=== PATIENT | female | born 1955 | race American Indian/Alaskan Native ===

== ENCOUNTER 2021-07-20 06:13 | Day surgery (SDC) | payer MEDICARE ==
[2021-07-18 11:10] LABS: Hematocrit 38.9 % (30.3-42.9); Mean Corpuscular HGB Conc 34 % (30-34); Mean Corpuscular Volume 93 fl (79-97); Platelet Count 300 K/mm3 (140-440); Red Blood Count 4.19 M/mm3 (3.65-5.03)
[2021-07-18 11:25] LABS: Alanine Aminotransferase 11 units/L (7-56); Albumin 3.9 g/dL (3.9-5); Blood Urea Nitrogen 15 mg/dL (7-17); Calcium 9.9 mg/dL (8.4-10.2); Hemolysis Index 46
[2021-07-18 11:48] LABS: BUN/Creatinine Ratio 25
--- NOTE | 2021-07-18 15:56 | Anesthesia Consultation ---
Anesthesia Consult and Med Hx Date of service: 07/20/21 - Airway Anesthetic Teeth Evaluation: Good ROM Head & Neck: Adequate Mental/Hyoid Distance: Adequate Mallampati Class: Class III Intubation Access Assessment: Probably Good - Pre-Operative Health Status ASA Pre-Surgery Classification: ASA4 Proposed Anesthetic Plan: General - Pre-Anesthesia Comment Pre-Anesthesia Comments: Pt had 104 temp post op and spent a week in ICU. ???MH. Use non-triggering anesthetics. - Pulmonary Hx Smoking: No Hx Sleep Apnea: Yes (DX SLEEP APNEA WITH CPAP USE.) - Cardiovascular System Hx Hypertension: Yes (X 15 YRS. +Cardiac clearance) Hx Heart Attack/AMI: No (Negative NST 06/2021) Hx Cardia Arrhythmia: Yes (PVCs-ablation in 2018) Hx Peripheral Vascular Disease: Yes (BEHZAD LEG SWELLING. DVT 2017-no anticoagulants) - Central Nervous System Hx Neuromuscular Disorder: Yes (Tremors; neuropathy) Hx Back Pain: Yes (BEHZAD LEG NUMBNESS/PAIN /SWELLING) Hx Psychiatric Problems: Yes (Anxiety/Depression/Fibromyalgia) - Gastrointestinal Hx Gastroesophageal Reflux Disease: Yes (Occasional dietary. S/P gastric bypass) - Endocrine Hx Non-Insulin Dependent Diabetes: No (None since gastric bypass) Hx Thyroid Disease: Yes Hx Hypothyroidism: Yes - Hematic Hx Anemia: No - Other Systems Hx Cancer: Yes (Breast) Hx Obesity: Yes - Additional Comments Anesthesia Medical History Comments: Recently had foot surgery--under MAC. Patient states she's slow to wake up and is sensitive to meds
[~2021-07-20 06:13] MED LIST: LACTATED RINGERS 1,000 ML IV SCH
[2021-07-20] MEDS ORDERED: BACTERIOSTATIC SODIUM CHLORIDE 0.9% 30 ML VIAL INFILTRATI ONE (06:54)
[2021-07-20] MEDS ORDERED: LIDOCAINE MPF (2%) 20 MG/1 ML VIAL 5 ML ONE (07:15)
[2021-07-20] MEDS ORDERED: fentaNYL 100 MCG/2 ML INJ ONE ×2 (07:15→08:55)
[2021-07-20] MEDS ORDERED: LIDOCAINE (2%) 20 MG/1 ML VIAL 20 ML MDV INFILTRATI ONE (07:15)
[2021-07-20] MEDS ORDERED: ONDANSETRON 4 MG/2 ML INJ ONE (07:15)
[2021-07-20] MEDS ORDERED: propofoL 200 MG/20 ML VIAL IV ONE (07:15)
[2021-07-20] MEDS ORDERED: ROCURONIUM 50 MG/5 ML INJ IV ONE (07:15)
[2021-07-20] MEDS ORDERED: dexAMETHasone 20 MG/5 ML VIAL ONE (07:15)
[2021-07-20] MEDS ORDERED: HYDROmorphone 1 MG/1 ML INJ IV PRN ×2 (07:45)
[2021-07-20] MEDS ORDERED: ETOMIDATE 20 MG/10 ML INJ IV ONE (07:45)
--- NOTE | 2021-07-20 07:45 | Anesthesia Day of Surgery ---
Anesthesia Day of Surgery - Day of Surgery Patient Examined: Yes Patient H&P Reviewed: Yes Patient is NPO: Yes
[2021-07-20] MEDS ORDERED: GENTAMICIN/NS 80 MG/100 ML 100 ML IV ONE (07:53)
[2021-07-20] MEDS ORDERED: GENTAMICIN 80 MG in SODIUM CHLORIDE 0.9% 100 ML IV SCH (08:00)
[2021-07-20] MEDS ORDERED: DEXTROSE 50% IN WATER (25GM) 50 ML SYRINGE IV SCH (08:00)
[2021-07-20] MEDS ORDERED: DEXTROSE 50% IN WATER (25GM) 50 ML SYRINGE IV ONE (08:01)
[2021-07-20] MEDS ORDERED: SODIUM CHLORIDE 0.9% IRR 1,500 ML BOTTLE IR ONE (08:59)
[2021-07-20] MEDS ORDERED: ONDANSETRON 4 MG/2 ML INJ IV PRN (09:00)
[2021-07-20] MEDS ORDERED: GENTAMICIN/NS 80 MG/100 ML 100 ML IV SCH (09:00)
--- NOTE | 2021-07-20 09:21 | Short Stay Summary ---
Short Stay Documentation Date of service: 07/20/21 - History H&P: obtained from office - Allergies and Medications Current Medications: Allergies ascorbic acid Allergy (Verified 07/12/21 09:36) COLD LIKE SYMPTOMS chlorhexidine Allergy (Verified 07/12/21 09:36) Itching citric acid [From Pat-Doran] Allergy (Verified 07/13/21 10:21) Vomiting clavulanic acid [From Augmentin] Allergy (Verified 07/12/21 09:36) Itching doxycycline Allergy (Verified 07/12/21 09:37) ABD PAIN grass pollen Allergy (Verified 07/12/21 09:39) Hives ondansetron [From Zofran] Allergy (Verified 07/12/21 09:33) HALLUCINATIONS rofecoxib [From Vioxx] Allergy (Verified 07/12/21 09:39) EYE SWELLING sodium bicarbonate [From Pat-Doran] Allergy (Verified 07/13/21 10:21) Vomiting Sulfa (Sulfonamide Antibiotics) Allergy (Verified 07/12/21 09:37) Rash aspirin Adverse Reaction (Verified 07/11/21 17:17) GI IRRITATION magnesium citrate Adverse Reaction (Verified 07/20/21 07:54) "GIVES ME THE SHAKES" soap Adverse Reaction (Verified 07/12/21 09:40) Itching IVORY,TIDE,CHEER,DIAL SOAPS Home Medications Medication Instructions Recorded Confirmed Last Taken Type Calcium Carbonate [Tums Ultra 470 mg PO PRN PRN 07/12/21 07/12/21 Unknown Histor y Strength] Cholecalciferol Vit D3 [Vitamin D3 1,000 unit PO QDAY 07/12/21 07/12/21 Unknown History 1,000 UNIT TAB] FLUoxetine HCL [PROzac] 50 mg PO QDAY 07/12/21 07/12/21 Unknown History Folic Acid [Folvite] 1 mg PO QDAY 07/12/21 07/12/21 Unknown History Gabapentin [Neurontin] 600 mg PO QPM 07/12/21 07/12/21 Unknown History Levothyroxine [Synthroid] 25 mcg PO QAM 07/12/21 07/12/21 Unknown History Multivit-Min/FA/Lycopen/Lutein 1 each PO DAILY 07/12/21 07/12/21 Unknown History [Centrum Silver Tablet] Vitamin E 1,000 unit PO DAILY 07/12/21 07/12/21 Unknown History amLODIPine [Norvasc] 10 mg PO DAILY 07/12/21 07/12/21 Unknown History Diclofenac 1% [Diclofenac 1% 1 dose TP PRN PRN 07/13/21 07/13/21 Unknown History topical gel] Active Medications Dextrose (Dextrose 50% In Water (25gm) 50 Ml Syringe) 25 ml IV PREOP VANCE; Protocol Stop: 07/20/21 15:00 Last Admin: 07/20/21 08:04 Dose: 25 ml Hydromorphone HCl (Hydromorphone 1 Mg/1 Ml Inj) 0.25 mg IV Q10MIN PRN PRN Reason: Pain, Moderate (4-6) Stop: 07/20/21 20:00 Hydromorphone HCl (Hydromorphone 1 Mg/1 Ml Inj) 0.5 mg IV Q10MIN PRN PRN Reason: Pain , Severe (7-10) Stop: 07/20/21 20:00 Lactated Ringer's (Lactated Ringers) 1,000 mls @ 100 mls/hr IV DIRECT VANCE Last Admin: 07/20/21 07:30 Dose: 100 mls/hr Gentamicin Sulfate/Sodium Chloride (Gentamicin/Ns 80 Mg/100 Ml) 100 mls @ 200 mls/hr IV PREOP VANCE Stop: 07/20/21 13:00 - Brief post op/procedure progress note Date of procedure: 07/20/21 Pre-op diagnosis: malfunction interstim Post-op diagnosis: same Procedure: remove ipg & lead Anesthesia: GETA Surgeon: MARIO LOVE Pathology: list (ipg & lead) Specimen disposition: to lab ( ipg & lead) Condition: stable - Hospital course Hospital course: norco on chart - Disposition Condition at discharge: Stable Disposition: 01 HOME / SELF CARE / HOMELESS Short Stay Discharge Plan Follow up with: KARI READ [Other] - 7 Days
--- NOTE | 2021-07-20 09:47 | Operative Report ---
DATE OF SURGERY: 07/20/2021 PREOPERATIVE DIAGNOSIS: Malfunctioning InterStim. POSTOPERATIVE DIAGNOSIS: Malfunctioning InterStim. PROCEDURE: Removal of InterStim (implantable pulse generator and quadripolar lead). SURGEON: Justin Mark MD ANESTHESIA: General. ESTIMATED BLOOD LOSS: Minimal. FLUIDS: Crystalloid. COMPLICATIONS: No complications. INDICATIONS: This patient is a 66-year-old female known to my service, dating back to 2007. She underwent InterStim, did well. She moved to [place], actually had the InterStim replaced and has subsequently moved back to [place]. InterStim is not working now; however, she has back pain, needing evaluation with MRI. She wants the InterStim removed and we will contemplate reinsertion afterwards. Risks, benefits, complications were explained. The battery device was on the right side on KUB. DESCRIPTION OF PROCEDURE: The patient was taken to the operative suite, placed in a supine position. After adequate general anesthesia, then placed in the prone position, prepped and draped in the sterile fashion. Her lower back was prepped and draped in a sterile fashion. C-arm fluoroscopy was used to identify the battery (implantable pulse generator) on the right side and the lead on the right side as well in the midline. Incision was made with a Bovie. Sharp dissection was taken down to the battery in the subcutaneous tissue. No signs of infection could be appreciated. On manipulation there was indentation of the wire at the midline. I made a small incision over the wire. I could identify it with a hemostat. I cut the wire and the pouch and removed the battery and with gentle tension I tried to remove the entire lead; however, the distal aspect could not be removed. This was noted on fluoroscopy. Copious irrigation was performed. Adequate hemostasis was achieved. Subcutaneous tissue was closed with 2-0 Vicryl in a running fashion. Skin was closed with 3-0 Vicryl in interrupted fashion on the pouch and midline. The patient tolerated the procedure well. Dressing was placed. She was extubated and taken to recovery room. She will go home on [place] and follow up in the office. TID: [id number] RECEIPT: [id number] Esteban/NANNETTE
--- NOTE | 2021-07-20 10:36 | Post Anesthesia Evaluation ---
- Post Anesthesia Evaluation Patient Participated: Yes Airway Patent: Yes Stable Respiratory Function: Yes Nausea/Vomiting: No Temp > 96.8F: Yes Pain Manageable: Yes Adequeate Hydration: Yes Anesthesia Complications: No Block Receding Appropriately: Not Applicable Patient on Ventilator: No
--- NOTE | 2021-07-20 11:22 | XRay Report ---
INTRAOPERATIVE FLUOROSCOPY: PELVIS 2 VIEWS INDICATION / CLINICAL INFORMATION: DYSFUNCTIONAL INTERSTIM; INCONTINENCE. TECHNIQUE: Intraoperative spot images were obtained during the procedure. FINDINGS: The InterStim device overlies the right presacral space Fluoroscopy Time: 3 seconds. Fluoroscopy Images: 2. Signer Name: Javier Adler MD Signed: 07/20/2021 11:08 AM Workstation Name: [id number]
[2021-07-20 12:25] VITALS: BP 135/65
== END 2021-07-20 11:40 | disposition home or self-care (01) ==
LOC: OR 06:13
PROVIDERS: ATTEND Urology
DX: T85.193A Other mechanical complication of implanted electronic neurostimulator, generator, initial encounter (principal); Z20.822 Contact with and (suspected) exposure to COVID-19; N39.41 Urge incontinence; G62.9 Polyneuropathy, unspecified; I42.9 Cardiomyopathy, unspecified; I73.9 Peripheral vascular disease, unspecified; E78.00 Pure hypercholesterolemia, unspecified; I10 Essential (primary) hypertension; Z86.718 Personal history of other venous thrombosis and embolism; K21.9 Gastro-esophageal reflux disease without esophagitis; E66.9 Obesity, unspecified; M19.90 Unspecified osteoarthritis, unspecified site; M79.7 Fibromyalgia; E03.9 Hypothyroidism, unspecified; E11.9 Type 2 diabetes mellitus without complications; F32.9 Major depressive disorder, single episode, unspecified; F41.9 Anxiety disorder, unspecified; Z88.8 Allergy status to other drugs, medicaments and biological substances; Z88.6 Allergy status to analgesic agent; Z79.899 Other long term (current) drug therapy; G47.30 Sleep apnea, unspecified; Z85.3 Personal history of malignant neoplasm of breast; Z90.710 Acquired absence of both cervix and uterus; Z87.440 Personal history of urinary (tract) infections; Z98.890 Other specified postprocedural states; Z68.33 Body mass index [BMI] 33.0-33.9, adult; Y82.8 Other medical devices associated with adverse incidents; Y92.89 Other specified places as the place of occurrence of the external cause
CPT/HCPCS: 36415; 64585; 64595; 73501; 80053; 82962; 85027; 88300; J1100; J1580; J2405; J2704; J3010; J3490; J7120; U0003; 88302